=== PATIENT | female | born 1995 | race Caucasian/White ===

== ENCOUNTER 2017-10-05 13:13 | Outpatient (CLI) ==
[2013-08-24 17:06] VITALS: BMI 24.0
== END 2017-10-05 13:14 | disposition home or self-care (01) ==
LOC: LAB 13:13
PROVIDERS: ATTEND Emergency Medicine
DX: R68.89 Other general symptoms and signs (principal)
CPT/HCPCS: 87502; 87651

== ENCOUNTER 2018-06-20 10:07 | Outpatient (CLI) ==
[2013-08-24 17:06] VITALS: BMI 24.0
== END 2018-06-20 10:08 | disposition home or self-care (01) ==
LOC: RHC-LAB 10:07
PROVIDERS: ATTEND Nurse Practitioner Family
DX: J02.9 Acute pharyngitis, unspecified (principal)
CPT/HCPCS: 87651